=== PATIENT | male | born 1970 | race Caucasian/White ===

== ENCOUNTER 2024-08-04 00:07 | Day surgery (SDC) | payer OTHER, SELFPAY ==
[2024-07-21 13:54] VITALS: BMI 27.3
[2024-08-04 07:24] VITALS: BP 117/83; PULSE 84; RESP 18; TEMP 36.1; O2SAT 100
[2024-08-04] MEDS: LACTATED RINGERS 1,000 ML 150 ML IV CONT (07:35)
--- NOTE | 2024-08-04 07:36 | SUR.PREOP ---
DR BRADY NOTIFIED PT ATE TWO GRAMAJO, EGG, CHEESE CROSSIANT SANDWICHES YESTERDAY AT 1100, THEN CLEAR LIQUIDS AND PREP AFTER THAT. PT FEELS HE IS CLEANED OUT. NO NEW ORDERS. DR BRADY WILL SEE PT.
--- NOTE | 2024-08-04 08:00 | P.HP_ITS ---
H&P: HPI History of Present Illness Date/Time: 08/04/24 08:00 Chief Complaint: Screening for colorectal cancer Narrative: this is a 53-year-old man who presents for colonoscopy. He has never had a colonoscopy before. He denies any hematochezia or melena. He denies family history of colon cancer. The patient did have solid food around 11:00 a.m. yesterday morning and he states that the miss read the instructions and thought that he could have solid food after noon. He still feels like he is cleaned out completely and like to proceed with colonoscopy. Review of Systems Review of Systems: All systems reviewed & are unremarkable except as noted in HPI and below Constitutional: Constitutional: Denies chills, Denies fever(s), Denies headache(s) and Denies weight loss Eyes: Eyes: Denies change in vision ENT: Denies dizziness, Denies headache(s), Denies neck mass and Denies throat swelling Cardiovascular: Cardiovascular: Denies chest pain, Denies lightheadedness and Denies dyspnea Respiratory: Respiratory: Denies cough, Denies dyspnea and Denies wheezing Gastrointestinal: Gastrointestinal: Denies abdominal pain, Denies change in bowel habits, Denies nausea and Denies vomiting Genitourinary: Genitourinary: Denies hematuria and Denies dysuria Musculoskeletal: Musculoskeletal: Reports as per HPI Integumentary/Breasts: Skin/Breast: Reports as per HPI Neurologic: Denies dizziness and Denies headache(s) Allergic/Immunologic: Allergic/Immunologic: Denies throat swelling and Denies wheezing [facility] Past Medical History Medical History (Updated 08/04/24 @ 08:01 by Juvenal Duarte DO) Carotid stenosis Erectile dysfunction Hyperglycemia Hyperlipidemia Hypertriglyceridemia Low testosterone Vitamin D deficiency Surgical History Surgical History (Updated 06/04/24 @ 14:31 by Dahlia Hidalgo PA-C) History of left-sided carotid endarterectomy History of neck surgery S/P arthroscopic knee surgery Family History Family History Father Diabetes mellitus Hypertension Heart disease Acute myocardial infarction Mother Diabetes mellitus Hypertension Heart disease Sibling Diabetes mellitus Hypertension Heart disease Social History Social History Social History: 05/28/24 somewhat confident with medical forms/has not received any assistance in past 12 months Smoking packs per day: 1 Smoking cigarettes per day: 20.0 Years smoked: 40 Smoking pack-years: 40.00 Smoking status: Current every day smoker Tobacco type: cigarettes Alcohol intake: current Drinks per week: 1 Substance use: never Substance use type: does not use Do You Feel Safe in your Home?: Yes Lack of Transportation: No Lack of Food: Sometimes True Current Housing: I Have Housing Concerned About Future Housing: No Difficulty Paying Gas/Electric Bills: YES Difficulty Paying for Meds: YES Currently Unemployed: YES Education: Don't Know Difficulty w/ Childcare or Family Care: No Living arrangements: with roommate(s) Occupation/Education: occupation Spiritual care concerns: No Meds Home Medications and Allergies Home Medications Medication Instructions Recorded Confirmed Type omega 3-pid-cpw-fish oil 1,000 mg 1 cap PO BID 12/22/21 08/04/24 History (120 mg-180 mg) capsule (Fish Oil) aspirin 325 mg tablet 325 mg PO DAILY 01/10/22 08/04/24 History ergocalciferol (vitamin D2) 1,250 1,250 mcg PO WEEKLY #12 caps 06/09/24 08/04/24 Rx mcg (50,000 unit) capsule rosuvastatin 20 mg tablet 20 mg PO DAILY #90 tabs 06/09/24 08/04/24 Rx Allergies Allergy/AdvReac Type Severity Reaction Status Date / Time No Known Allergies Allergy Verified 08/04/24 07:22 Vital Signs Vital Signs - 24 hr 08/04/24 07:24 Temperature 97 F L Pulse Rate 84 Respiratory Rate 18 Blood Pressure 117/83 Pulse Oximetry 100 Oxygen Delivery Room Air Exam Const: General: no acute distress and alert Orientation/consciousness: patient oriented x3 HENMT: Head: normocephalic and atraumatic Ears: hearing grossly normal bilaterally Face/Nose/Sinus: Normal nares present Mouth: Yes Normal oral and palatal mucosa present Eyes: Periorbital: periorbital findings normal Sclera: sclerae normal EOM: EOMs intact bilaterally Neck: Neck: normal visual inspection, no lymphadenopathy and trachea midline Chest: Chest palpation & inspection: normal inspection of the chest Resp: Effort & Inspection: normal respiratory effort Auscultation: clear to auscultation bilaterally Cardio: Jugular venous distension: no JVD Rate: regular rate Rhythm: regular rhythm Heart sounds: S1 normal heart sound present and S2 normal heart sound present Peripheral pulses: Peripheral pulses 2+ throughout GI: Inspection: normal to inspection GI Palp: Yes Soft to palpation, No Tenderness to palpation present (GI), No Guarding due to palpation present (GI) and No Rebound tenderness present Percussion: Yes normal to percussion Auscultation: normal bowel sounds : General: Yes no CVA tenderness Back/Spine/Pelvis: Back: no CVA tenderness Neuro: General: patient oriented x3, no focal motor deficits and CN's II-XI intact bilaterally Cognition (Neuro): normal cognition Speech: normal speech Motor exam (neuro): 5/5 motor strength present throughout Extrem: General: capillary refill normal and no clubbing, cyanosis or edema Assessment and Plan Assessment and plan (1) Screening for colorectal cancer: Code(s): Z12.11 - Encounter for screening for malignant neoplasm of colon; Z12.12 - Encounter for screening for malignant neoplasm of rectum Status: Acute Assessment and Plan: I have recommended colonoscopy. I have discussed the procedure, risks, benefits, and alternatives. Questions were answered. Patient is agreeable to proceed.
--- NOTE | 2024-08-04 08:17 | WPDANESEPPF ---
Anes - Initial Pre Proc Eval Procedure: Operation Date: 08/04/24 08:30 Proposed Procedures p Screening Colonoscopy - Juvenal Duarte DO Date/Time: 08/04/24 08:17 Surgeon: Juvenal Duarte DO Pre Op Diagnosis: Screening for malignant neoplasm of colon Patient Data Age: 53 Gender: M Height: 1.75 m Weight: 81.9 kg Last Vital Signs Temp 97 F L 08/04/24 07:24 Pulse 84 08/04/24 07:24 Resp 18 08/04/24 07:24 BP 117/83 08/04/24 07:24 Pulse Ox 100 08/04/24 07:24 O2 Del Method Room Air 08/04/24 07:24 Allergies Allergy/AdvReac Type Severity Reaction Status Date / Time No Known Allergies Allergy Verified 08/04/24 07:22 Home Medications Medication Instructions Recorded Confirmed Type omega 7-acm-ajv-fish oil 1,000 mg 1 cap PO BID 12/22/21 08/04/24 History (120 mg-180 mg) capsule (Fish Oil) aspirin 325 mg tablet 325 mg PO DAILY 01/10/22 08/04/24 History ergocalciferol (vitamin D2) 1,250 1,250 mcg PO WEEKLY #12 caps 06/09/24 08/04/24 Rx mcg (50,000 unit) capsule rosuvastatin 20 mg tablet 20 mg PO DAILY #90 tabs 06/09/24 08/04/24 Rx Patient hx anesthesia problems: none Family hx anesthesia problems: none Results Review: All pre-operative results and documents have been reviewed as part of the pre-operative evaluation. [facility] Past Medical History Medical History (Updated 08/04/24 @ 08:01 by Juvenal Duarte DO) Carotid stenosis Erectile dysfunction Hyperglycemia Hyperlipidemia Hypertriglyceridemia Low testosterone Vitamin D deficiency Surgical History Surgical History (Updated 06/04/24 @ 14:31 by Dahlia Hidalgo PA-C) History of left-sided carotid endarterectomy History of neck surgery S/P arthroscopic knee surgery Family History Family History Father Diabetes mellitus Hypertension Heart disease Acute myocardial infarction Mother Diabetes mellitus Hypertension Heart disease Sibling Diabetes mellitus Hypertension Heart disease Social History Social History Social History: 05/28/24 somewhat confident with medical forms/has not received any assistance in past 12 months Smoking packs per day: 1 Smoking cigarettes per day: 20.0 Years smoked: 40 Smoking pack-years: 40.00 Smoking status: Current every day smoker Tobacco type: cigarettes Alcohol intake: current Drinks per week: 1 Substance use: never Substance use type: does not use Do You Feel Safe in your Home?: Yes Lack of Transportation: No Lack of Food: Sometimes True Current Housing: I Have Housing Concerned About Future Housing: No Difficulty Paying Gas/Electric Bills: YES Difficulty Paying for Meds: YES Currently Unemployed: YES Education: Don't Know Difficulty w/ Childcare or Family Care: No Living arrangements: with roommate(s) Occupation/Education: occupation Spiritual care concerns: No Anes - Eval Final PreProcedure Day of Procedure 08/04/24 08:17 Patient weight: normal Heart: regular rate and rhythm Lungs: clear to auscultation Airway: Mallampati scale class II Neurological: alert and oriented Last oral intake: >/= 8 hours ASA classification: II Emergent: no Anesthetic plan: proceed Anesthesia type and monitoring: general GIVS and standard monitoring Results Review: All pre-operative results and documents have been reviewed as part of the pre-operative evaluation. Informed Consent: The patient's anesthetic plan and its attendant risks and benefits were discussed with the patient/family/POA. Questions were solicited and answers provided to the satisfaction of the patient/family/POA.
[2024-08-04 08:49] VITALS: BP 88/61; PULSE 74; RESP 19; O2SAT 95
[2024-08-04 08:59] VITALS: BP 85/59; PULSE 74; RESP 18; O2SAT 96
[2024-08-04 09:01] VITALS: BP 95/59; PULSE 78
[2024-08-04 09:09] VITALS: BP 110/71; PULSE 68; RESP 19
== END 2024-08-04 09:17 | disposition home or self-care (01) ==
PROVIDERS: PCP Physician Assistant Medical; Visit Provider Surgery
PROC: 0DJD8ZZ Inspection of Lower Intestinal Tract, Via Natural or Artificial Opening Endoscopic (ICD-10-PCS; CPT 45378; principal; 2024-08-04 08:30)
DX: Z12.11 Encounter for screening for malignant neoplasm of colon (principal); D12.5 Benign neoplasm of sigmoid colon; K62.1 Rectal polyp; E78.5 Hyperlipidemia, unspecified; E78.1 Pure hyperglyceridemia; E55.9 Vitamin D deficiency, unspecified; N52.9 Male erectile dysfunction, unspecified; R73.9 Hyperglycemia, unspecified; F17.210 Nicotine dependence, cigarettes, uncomplicated; Z79.82 Long term (current) use of aspirin; Z98.890 Other specified postprocedural states; Z86.79 Personal history of other diseases of the circulatory system; Z82.49 Family history of ischemic heart disease and other diseases of the circulatory system
CPT/HCPCS: 45385; 88305; J2003; J2704; J7120